=== PATIENT | male | born 1945 | race Caucasian/White ===

== ENCOUNTER → 2016-07-26 | Outpatient (CLI) | payer OTHER ==
[2016-07-26 14:51] LABS: BASO % 0.3 %; BASO ABS # 0.02 K/uL (0-0.2); COMPLETE YES; EOS % 1.5 %; IG% 0.5 %; LYMPH % 23.3 %; LYMPH ABS # 1.36 K/uL (1.2-3.4); MEAN CELL VOLUME 92.8 fL (80-100); MEAN CORPUSCULAR HEMOGLOBIN 31.6 pg (25-34); MEAN CORPUSCULAR HGB CONC 34.1 g/dl (32-36); MEAN PLATELET VOLUME 11.9 fL (7.4-10.4); MONO % 7.5 %; NEUT % 66.9 %; PLATELET COUNT 175 K/uL (130-400); RED BLOOD COUNT 4.74 M/uL (4.7-6.1); WHITE BLOOD COUNT 5.84 K/uL (4.8-10.8)
[2016-07-26 14:59] LABS: ALT/SGPT 56 U/L (12-78); AST/SGOT 35 U/L (15-37); BLOOD UREA NITROGEN 13 mg/dl (7-18); BUN/CREATININE RATIO 11.7 (10-20); CALCIUM 9.1 mg/dl (8.5-10.1); CARBON DIOXIDE 27 mmol/L (21-32); CHLORIDE 98 mmol/L (98-107); GLUCOSE 170 mg/dl (70-99); POTASSIUM 4.2 mmol/L (3.5-5.1); SODIUM 134 mmol/L (136-145)
[2016-07-26 15:04] LABS: ALB/GLOB RATIO 1.2 (0.9-2); ALKALINE PHOSPHATASE 74 U/L (45-117); CHOLESTEROL 155 mg/dl (0-200); CHOLESTEROL/HDL RATIO 3.8; HDL CHOLESTEROL 41 mg/dl; LDL CHOLESTEROL CALCULATED 46 mg/dl; TRIGLYCERIDES 338 mg/dl (0-150); VERY LOW DENSITY LIPOPROT CALC 68 mg/dl
[2016-07-27 06:23] LABS: ESTIMATED AVERAGE GLUCOSE 232 mg/dl; HA1C FLAG Normal (Normal)
== END | disposition home or self-care (01) ==
LOC: C.LABSPEC 14:27
PROVIDERS: ATTEND Family Medicine
DX: E11.9 Type 2 diabetes mellitus without complications (principal); E78.2 Mixed hyperlipidemia; R06.02 Shortness of breath; I10 Essential (primary) hypertension

== ENCOUNTER → 2017-01-24 | Outpatient (CLI) | payer OTHER ==
[2017-01-24 14:26] LABS: ESTIMATED AVERAGE GLUCOSE 232 mg/dl; HA1C FLAG Normal (Normal)
== END | disposition home or self-care (01) ==
LOC: C.LABSPEC 13:07
PROVIDERS: ATTEND Family Medicine
DX: E11.9 Type 2 diabetes mellitus without complications (principal)

== ENCOUNTER → 2017-07-25 | Outpatient (CLI) | payer OTHER ==
[2017-07-25 18:17] LABS: BASO % 0.4 %; BASO ABS # 0.02 K/uL (0-0.2); EOS % 1.7 %; EOS ABS # 0.09 K/uL (0-0.5); HEMATOCRIT 41.4 % (42-52); HEMOGLOBIN 14.2 g/dL (14.0-18.0); IG# 0.01 K/uL (0.00-0.02); LYMPH % 17.7 %; LYMPH ABS # 0.96 K/uL (1.2-3.4); MEAN CELL VOLUME 91.8 fL (80-100); MEAN CORPUSCULAR HEMOGLOBIN 31.5 pg (25-34); MEAN CORPUSCULAR HGB CONC 34.3 g/dl (32-36); MEAN PLATELET VOLUME 10.5 fL (7.4-10.4); MONO % 8.7 %; MONO ABS # 0.47 K/uL (0.11-0.59); NEUT % 71.3 %; NEUT ABS # 3.86 K/uL (1.4-6.5); PLATELET COUNT 167 K/uL (130-400); RED CELL DISTRIBUTION WIDTH CV 13.7 % (11.5-14.5); RED CELL DISTRIBUTION WIDTH SD 45.3 fL (36.4-46.3); WHITE BLOOD COUNT 5.41 K/uL (4.8-10.8)
[2017-07-25 18:48] LABS: ALBUMIN 4.2 gm/dl (3.4-5.0); ALT/SGPT 53 U/L (12-78); BLOOD UREA NITROGEN 16 mg/dl (7-18); CARBON DIOXIDE 27 mmol/L (21-32); CHOLESTEROL 122 mg/dl (0-200); GLUCOSE 157 mg/dl (70-99); POTASSIUM 4.4 mmol/L (3.5-5.1); SODIUM 135 mmol/L (136-145)
[2017-07-25 18:50] LABS: ALKALINE PHOSPHATASE 73 U/L (45-117); AST/SGOT 40 U/L (15-37); LDL CHOLESTEROL CALCULATED 47 mg/dl; TOTAL PROTEIN 7.9 gm/dl (6.4-8.2)
[2017-07-26 07:13] LABS: HEMOGLOBIN A1C 8.8 % (4.5-5.6)
== END | disposition home or self-care (01) ==
LOC: C.LABSPEC 17:50
PROVIDERS: ATTEND Family Medicine
DX: E11.9 Type 2 diabetes mellitus without complications (principal); E78.2 Mixed hyperlipidemia; I10 Essential (primary) hypertension

== ENCOUNTER → 2018-01-23 | Outpatient (CLI) | payer MEDICARE ==
[2018-01-23 13:52] LABS: BASO % 0.3 %; BASO ABS # 0.02 K/uL (0-0.2); EOS ABS # 0.06 K/uL (0-0.5); HEMATOCRIT 43.7 % (42-52); HEMOGLOBIN 14.4 g/dL (14.0-18.0); IG# 0.04 K/uL (0.00-0.02); LYMPH % 18.4 %; LYMPH ABS # 1.11 K/uL (1.2-3.4); MEAN CELL VOLUME 93.2 fL (80-100); MEAN CORPUSCULAR HEMOGLOBIN 30.7 pg (25-34); MEAN PLATELET VOLUME 11.3 fL (7.4-10.4); MONO % 7.1 %; MONO ABS # 0.43 K/uL (0.11-0.59); NEUT % 72.5 %; NEUT ABS # 4.37 K/uL (1.4-6.5); PLATELET COUNT 184 K/uL (130-400); RED CELL DISTRIBUTION WIDTH SD 47.2 fL (36.4-46.3); WHITE BLOOD COUNT 6.03 K/uL (4.8-10.8)
[2018-01-23 14:15] LABS: ALKALINE PHOSPHATASE 62 U/L (45-117); ALT/SGPT 54 U/L (12-78); AST/SGOT 35 U/L (15-37); BLOOD UREA NITROGEN 16 mg/dl (7-18); CALCIUM 9.3 mg/dl (8.5-10.1); CARBON DIOXIDE 25 mmol/L (21-32); CHOLESTEROL 139 mg/dl (0-200); CREATININE 1.08 mg/dl (0.60-1.40); GLUCOSE 157 mg/dl (70-99); LDL CHOLESTEROL CALCULATED 36 mg/dl; POTASSIUM 4.4 mmol/L (3.5-5.1); SODIUM 133 mmol/L (136-145); TOTAL PROTEIN 7.9 gm/dl (6.4-8.2)
== END | disposition home or self-care (01) ==
LOC: C.LABSPEC 12:59
PROVIDERS: ATTEND Family Medicine
DX: E11.9 Type 2 diabetes mellitus without complications (principal); I10 Essential (primary) hypertension; E78.2 Mixed hyperlipidemia

== ENCOUNTER 2024-10-01 11:33 | Inpatient (IN) ==
--- NOTE | 2024-09-26 09:42 | Anesthesiology Consultation ---
Date of Service September 26, 2024 Assessment & Plan (1) Encounter for pre-operative examination: - Check BSG DOS - Infectious disease screening: Per assessment on 09/26/24- No known recent infectious disease contacts or current infectious disease symptoms. - Cardiology visit (09/13/24): "He was incidentally noted to be in atrial flutter during a visit to Pre Admission Testing at [facility] [place] on 08/07/24. He was asymptomatic with the arrhythmia and rate was adequately controlled. He was referred to the ER. He was hypertensive in the ER but other work-up was unremarkable and he was discharged home on Eliquis 5 mg BID. He was then seen in consultation by Champ Bill on 08/15/24. At that time, he was ordered an echocardiogram. Atrial flutter ablation was recommended, but it was decided to pursue this after scheduled back surgery on 09/05/24. When patient arrived for his surgery on 09/05/24, he was tachycardic with a rate of 135 bpm. His rate improved with IV Lopressor and the plan was to continue with surgery, however, it was then discovered that patient had not been holding his anticoagulation therapy. The procedure was therefore cancelled for this reason. He was scheduled follow-up in our office given elevated heart rate on 09/05/24.. Echo 09/04/24: Normal biventricular systolic function. Moderate LVH. Mild biatrial dilation. Mild MR/TR. Normal estimated right heart pressures." "Plan.. Given the fact that he was tachycardic when he arrived for surgery on 09/05/24, will initiate low dose metoprolol to hopefully help with rate control. Atrial flutter ablation is still recommended for more definitive treatment, however, will wait until after his back surgery. He will continue Eliquis 5 mg BID but can hold anticoagulation for 3 days prior to surgery and resume once safe from a bleeding standpoint.. Acceptable risk to proceed with back surgery from a cardiovascular standpoint. Will initiate PO beta joel to hopefully improve rate control but may still require IV rate controlling therapy if he is tachycardic on the day of surgery." Chart Review Chart Review: Acceptable Risk for Surgery (pending EKG DOS) and Patient NOT seen in Pre Admission Testing History Surgery Operation Date: 10/01/24 13:05 Proposed Procedures p L4-L5 Decompression and Fusion, Spinal Cord Monitoring - Adal Aguila DO Height/Weight Height: 5 ft 10 in Weight: 90.718 kg Allergies Allergy/AdvReac Type Severity Reaction Status Date / Time No Known Allergies Allergy Verified 09/26/24 08:51 Medications Home Medications Medication Instructions Recorded Confirmed Last Taken aspirin 81 mg tablet,delayed 81 mg PO QAM 07/27/24 09/26/24 09/04/24 10:00 release enalapril maleate 20 mg tablet 20 mg PO QAM 07/27/24 09/26/24 09/04/24 10:00 ezetimibe 10 mg tablet 10 mg PO QAM 07/27/24 09/26/24 09/05/24 05:00 glimepiride 4 mg tablet 8 mg PO QAM 07/27/24 09/26/24 09/04/24 10:00 metformin 500 mg tablet 2,500 mg PO QAM 07/27/24 09/26/24 09/04/24 10:00 pioglitazone 45 mg tablet 45 mg PO QAM 07/27/24 09/26/24 09/04/24 10:00 simvastatin 20 mg tablet 20 mg PO QAM 07/27/24 09/26/24 09/05/24 05:00 sitagliptin phosphate 100 mg 100 mg PO QAM 07/27/24 09/26/24 09/04/24 10:00 tablet (Januvia) cholecalciferol (vitamin D3) 125 125 mcg PO BID 09/05/24 09/26/24 09/05/24 05:00 mcg (5,000 unit) tablet (Vitamin D3) apixaban 5 mg tablet (Eliquis) 5 mg PO BID #60 tabs 09/13/24 09/26/24 Unknown metoprolol succinate 25 mg 25 mg PO DAILY #30 tabs 09/13/24 09/26/24 Unknown tablet,extended release 24 hr Past Medical History Medical History Atrial flutter Taking Eliquis/metoprolol Follows with [facility] Chronic back pain Degenerative disc disease Diabetes mellitus, type 2 NIDDM Hx of rheumatic fever As child Hyperlipidemia Hypertension Osteoarthritis Past Family History Family History Father No problems noted. Mother Diabetes Brother Diabetes Brother Diabetes Past Surgical History Surgical History History of tooth extraction Hx of vasectomy Social History Smoking Status: Never smoker Do You Dip or Chew Tobacco: No Hx Alcohol Use: Yes Alcohol type: beer alcohol intake frequency: holidays/special occasions only Hx Substance Use: No substance use type: does not use Lab Results Anesthesia Preop Results Results Anesthesia Widget: WBC 4.88 K/ul (4.8-10.8) 08/07/24 Hgb 14.9 g/dl (14.0-18.0) 08/07/24 Hct 45.3 % (42.0-52.0) 08/07/24 Plt 147 K/uL (130-400) 08/07/24 Na 136 mmol/L (136-145) 08/07/24 K 4.2 mmol/L (3.5-5.1) 08/07/24 Cl 100 mmol/L (98-107) 08/07/24 CO2 29 mmol/L (21-32) 08/07/24 BUN 16 mg/dl (6-23) 08/07/24 Creat 1.12 mg/dl (0.6-1.4) 08/07/24 Glucose Level 209 mg/dl (70-99(Fasting)) H 08/07/24 PT 11.4 Seconds (9.0-12.0) 08/07/24 PTT 28 Seconds (21-31) 08/07/24 INR 1.1 (0.9-1.1) 08/07/24 HA1c 9.1 % (4.5-5.6) H 08/07/24 Urine Color Yellow 08/08/24 Urine Appearance Clear (Clear) 08/08/24 Urine pH 5.0 (4.5-7.5) 08/08/24 Urine Specific [place] 1.029 (1.000-1.030) 08/08/24 Urine Protein 1+ (Negative) H 08/08/24 Urine Glucose (UA) 3+ (Negative) H 08/08/24 Urine Ketones Trace (Negative) H 08/08/24 Urine Blood Negative (Negative) 08/08/24 Urine Nitrite Negative (Negative) 08/08/24 Urine Bilirubin Negative (Negative) 08/08/24 Urine Urobilinogen Negative (Negative) 08/08/24 Urine Leukocyte Esterase Negative (Negative) 08/08/24 Urine WBC (Auto) 0-5 /hpf (0-5) 08/08/24 Urine RBC (Auto) 0-2 /hpf (0-2) 08/08/24 Urine Hyaline Casts (Auto) 0-2 /lpf (0-2) 08/08/24 Urine Epithelial Cells (Auto) 0-2 /hpf (0-2) 08/08/24 Urine Bacteria (Auto) None Seen (None Seen) 08/08/24 Coronavirus OC43 (PCR) Not Detected (NotDetected) 08/07/24 Coronavirus HKU1 (PCR) Not Detected (NotDetected) 08/07/24 Coronavirus 229E (PCR) Not Detected (NotDetected) 08/07/24 COVID-19 PCR Not Detected (NotDetected) 08/07/24 Coronavirus NL63 (PCR) Not Detected (NotDetected) 08/07/24 Blood Type O Positive 08/07/24 Antibody Screen NEGATIVE 08/07/24 Testing Laboratory Results Surgeon's office notified of elevated A1C per addendum on anesthesia consult from 08/07/24. Electrocardiogram Date: 09/05/24 Atrial flutter with variable AVB at 135bpm. Cannot r/o inferior infarct (cited on or before 08/07/2024). Chest X-Ray Date: 08/07/24 FINDINGS: Single view chest demonstrates no acute cardiopulmonary process. Is no airspace opacity or pleural effusion. There is no atelectasis or pneumothorax. The heart and pulmonary vascularity are unremarkable. IMPRESSION: No acute process. Echocardiogram Date: 09/04/24 EF 55-60%. Moderate asymmetric LVH. No RWMA. Mild RVD. Mild MR/TR. Normal estimated right heart pressures.
[~2024-10-01 11:33] MED LIST: DEXAMETHASONE SOD INJ 4 MG/ML VIAL ONE; GLYCOPYRROLATE 0.2 MG/ML VIAL ONE; LIDOCAINE 2% 2 ML VIAL/AMP(20MG/ML) INFIL ONE; ONDANSETRON INJ 2 MG/ML 2 ML VIAL ONE; PROPOFOL IV EMULSION 10 MG/ML 20 ML VIAL IV ONE; ROCURONIUM BROMIDE 10 MG/ML 5 ML VIAL IV ONE; fentaNYL citrate PF 100 MCG/2 ML VIAL ONE
[2024-10-01] MEDS: CeleBREX 200 MG CAP PO SCH (12:17)
[2024-10-01] MEDS: LACTATED RINGER'S 1,000 ML IV SCH (12:17)
[2024-10-01] MEDS: ACETAMINOPHEN 500 MG TAB PO SCH (12:17)
[2024-10-01] MEDS: LR 60ML/HR IV SCH (12:18)
[2024-10-01] MEDS: GABAPENTIN 300 MG CAP PO SCH (12:18)
[2024-10-01] MEDS ORDERED: METOPROLOL TARTRATE 1 MG/ML VIAL IV ONE (12:34)
--- NOTE | 2024-10-01 12:58 | History & Physical Bridge Note ---
Date of Service October 01, 2024 History & Physical Bridge Note I have examined the patient, reviewed the History & Physical and in the interval since the performance of the History & Physical I have noted the following changes of clinical significance: no changes noted
--- NOTE | 2024-10-01 12:59 | History & Physical Report ---
Date of Service October 01, 2024 Assessment & Plan (1) Spondylolisthesis, lumbar region: Plan: L4-5 decompression fusion History of Present Illness Chief Complaint: Back and bilateral leg pain Primary Care Provider: Dru Johnson DO This is a 78-year-old male who presents with chronic persistent back and leg pain after failed course of nonoperative care is here for surgical invention. Allergies Allergy/AdvReac Type Severity Reaction Status Date / Time No Known Allergies Allergy Verified 10/01/24 11:40 Home Medications Medication Instructions Recorded Confirmed Type aspirin 81 mg tablet,delayed 81 mg PO QAM 07/27/24 10/01/24 History release enalapril maleate 20 mg tablet 20 mg PO QAM 07/27/24 10/01/24 History (Vasotec) ezetimibe 10 mg tablet (Zetia) 10 mg PO QAM 07/27/24 10/01/24 History glimepiride 4 mg tablet 8 mg PO QAM 07/27/24 10/01/24 History metformin 500 mg tablet 2,500 mg PO QAM 07/27/24 10/01/24 History pioglitazone 45 mg tablet 45 mg PO QAM 07/27/24 10/01/24 History simvastatin 20 mg tablet 20 mg PO QAM 07/27/24 10/01/24 History sitagliptin phosphate 100 mg 100 mg PO QAM 07/27/24 10/01/24 History tablet (Januvia) cholecalciferol (vitamin D3) 125 125 mcg PO BID 09/05/24 10/01/24 History mcg (5,000 unit) tablet (Vitamin D3) apixaban 5 mg tablet (Eliquis) 5 mg PO BID #60 tabs 09/13/24 10/01/24 Rx metoprolol succinate 25 mg 25 mg PO DAILY #30 tabs 09/13/24 10/01/24 Rx tablet,extended release 24 hr Past Med/Surg History Problem List (Updated 10/01/24 @ 12:58 by Adal Aguila DO) Spondylolisthesis, lumbar region Encounter for pre-operative examination Hyperlipidemia Medical History Atrial flutter Taking Eliquis/metoprolol Follows with [facility] Chronic back pain Degenerative disc disease Diabetes mellitus, type 2 NIDDM Hx of rheumatic fever As child Hyperlipidemia Hypertension Osteoarthritis Surgical History History of tooth extraction Hx of vasectomy Family History Father No problems noted. Mother Diabetes Brother Diabetes Brother Diabetes Social History Smoking Status: Never smoker Second Hand Exposure: No; Do You Dip or Chew Tobacco: No; Tobacco Cessation Education Requested by Patient: No Hx Alcohol Use: Yes Alcohol type: beer Hx Substance Use: No Preferred Language: [place]i Communication Ability: Effective Fur Grader Required: No Beliefs That Will Affect Care: None Current Living Situation: Spouse and Family Other Information That Helps Us Care for You: No Feels Safe at Home: Yes Safety Concerns: Feels Safe At This Time Assistive Devices: Denture - Upper and Denture - Lower Physical Exam Physical Exam: Patient is alert and oriented Heart regular rhythm Lungs clear Results & Data Results & Data Vital Signs (Past 12 Hours) Vital Signs Temp Pulse Resp BP BP Pulse Ox O2 Del Method 10/01/24 12:49 67 18 146/78 H 96 Room Air 10/01/24 12:44 68 18 143/76 H 94 Room Air 10/01/24 12:38 69 18 146/76 H 98 Room Air 10/01/24 11:58 36.7 C 115 H 20 191/125 H 186/120 H 99 Room Air
[2024-10-01] MEDS: ceFAZolin 2000MG 2,000 MG/15 ML SYR IV SCH ×2 (13:32→21:16)
[2024-10-01] MEDS ORDERED: ROCURONIUM BROMIDE 10 MG/ML 5 ML VIAL IV ONE (13:58)
[2024-10-01] MEDS ORDERED: ePHEDrine sulfate 50 MG/5 ML SYR ONE (14:02)
[2024-10-01] MEDS: ceFAZolin 330 MG/ML 1 GM VIAL ONE (14:20)
[2024-10-01] MEDS: BUPIVACAINE/EPINEPHRINE 0.25% 1:200,000 30 ML VIAL ONE (14:20)
[2024-10-01] MEDS ORDERED: SUGAMMADEX SODIUM 200 MG/2 ML VIAL IV ONE (14:46)
[2024-10-01] MEDS ORDERED: fentaNYL citrate PF 100 MCG/2 ML VIAL ONE (14:47)
[2024-10-01] MEDS: FLOSEAL HEMOSTATIC MATRIX 10ML TOP ONE (15:00)
--- NOTE | 2024-10-01 15:15 | Operative Report ---
Post Operative Report Pre & Post Diagnosis Operation Date: 10/01/24 13:05 Pre-Op Diagnosis: #1 lumbar spondylolisthesis with radiculopathy #2 lumbar spondylosis with radiculopathy #3 lumbar spinal stenosis Post-Op Diagnosis: Same I identified the patient and participated in the time-out.: Yes Procedure Operation Date: 10/01/24 13:05 Actual Procedures #1 lumbar decompression with bilateral milliseconds and foraminotomies L3-L4 L4- 5. #2 posterior spinal fusion L4-5 for #3 please close transportation L4-5 using open. #4 interbody fusion L4-5 #5 this was prior 14 x 26 mm x 2 at L4-5 #6 placement locally harvested 1 Cystografin posterior gutter. #7 placement of infuse collagen sponge can both close in the posterior lateral gutters and os design interbody space. Surgeon Adal Aguila DO Director Strategy Suzan Carroll Estimated Blood Loss 250 Findings Consistent with Post-Op Diagnosis Specimens None Indications This is a 78-year-old male presents by manage diagnosis septic in the course of nonoperative care is here for surgical invention. Description of Procedure Patient was met with identified informed consent obtained. Patient was then taken to the operative suite underwent to the patient placed in a prone position on the Tanner table With a Rowdy frame. All bony prominences well-padded eyes inspected to ensure no external close based on the. This point lumbar spine is prepped and draped in normal sterile fashion. Sharp dissection with the assistance of Bovie cautery for down to exposing the lamina transverse processes of L4-5. From a caudal cephalad fashion a complete laminectomy of L4 was performed including bilateral L5 segments from addressing severe subarticular and foraminal stenosis. This followed by partial laminectomy L3 with bilateral medial facetectomy stressed all subarticular stenosis. Pedicle screws were then placed in L4-5 bilaterally with assistance of fluoroscopy and the properly sized darlene placed. Typically the transforaminal portion right discectomy of L4-5 is performed and please go to just a cortical bone and a 14 x 26 mm spiral cage phototoxic design bone graft down to position. Then proceeded to the left transforaminal region. Again discectomy performed. Endplate coated to subcortically bone and a second 14 x 26 mm spiral cage with ostia sign catheterization. The rods are then compressed locked in final position bilaterally. Transverse processes of L4 fibroid to subcortical bony bone. Infuse collagen sponge, combined with close was then placed in the posterolateral gutters along with morselized local autograft. I then placed DuraGen and DuraSeal over the dura as there was a small area of thinning but no CSF leak. 15 round BELEN drain inserted. The incision was then closed with 1 Vicryl fascia 2-0 Vicryl subcutaneously and 4 Monocryl for final skin closure. Steri-Strips sterile dressing placed. Patient waken taken to PACU in stable condition. Please note spinal cord monitoring was utilized at the procedure no changes noted. Suzan Carroll was present at the entire surgery by the patient positioning complex portion of the surgery and final skin closure. Im ordering 10 grams of Collagen Powder ([facility] A6010 Primary Dressing) and 10 bordered super absorbent ([facility] A6196 Secondary Dressing) to treat an incision wound that was caused by a spine procedure. The incision is approximately 2 cm(W) x 2 cm(L) down to the spinal column and epidural space 2 cm (D) in size and is a full thickness wound showing no signs of infection. Collagen comes in 1 gram packets so 10 packets were ordered. Given the size of the wound, with moderate exudate I chose to order a 10 day supply. The patient will be provided instructions for proper application of the collagen wound kit. The patient will be asked to apply the collagen powder daily and then cover it with sterile dressings dispensed. Collagen was selected as I expect the collagen to attract monocytes and fibroblasts, act as a sacrificial substrate for MMPs, and ultimately proved a matrix for tissue and vessel growth. The collagen will act as a primary dressing in this scenario. It is medically necessary for proper healing of these wounds to improve bioavailability and contact with each wound surface, this is also to help prevent infection of wounds and promote healing ultimately leading to a better healing outcome and limit the risk of infection. I attest to the content of the Intraoperative Record and any orders documented therein. Any exceptions are noted below.
[2024-10-01] MEDS ORDERED: ePHEDrine sulfate 50 MG/ML AMP IV PRN (15:34)
[2024-10-01] MEDS ORDERED: ONDANSETRON INJ 2 MG/ML 2 ML VIAL IV PRN ×2 (15:34→17:56)
[2024-10-01] MEDS ORDERED: fentaNYL citrate PF 100 MCG/2 ML VIAL IV PRN (15:34)
[2024-10-01] MEDS ORDERED: ATROPINE SULFATE 0.1 MG/ML 10ML SYR IV PRN (15:34)
--- NOTE | 2024-10-01 15:35 | Fluoroscopy Report ---
FL lumbar spine 2-3V CLINICAL HISTORY: L4-L5 DECOMPRESSION AND FUSION COMPARISON STUDY: No previous studies for comparison. Fluoroscopy time: 15 seconds. Number of fluoroscopic images: 2 Ka,r: 11.19 mGy. FINDINGS: Fluoroscopy was provided during L4-5 decompression and fusion with interbody spacer placeme nt. IMPRESSION: Fluoroscopy provided during L4-L5 decompression and fusion. ACT 112: Negative or not required by law. Electronically signed by: Jesus Tobar M.D. 10/01/2024 3:33 PM
--- NOTE | 2024-10-01 15:59 | Anesthesiology Progress Note ---
Date of Service October 01, 2024 Anesthesia Post Procedure Vital Signs Vital Signs: Temp Pulse Resp BP BP Pulse Ox O2 Del Method 10/01/24 15:55 106 H 17 116/91 94 Room Air 10/01/24 15:45 105 H 18 114/84 98 Oxymask 10/01/24 15:35 99 H 18 110/77 99 Oxymask 10/01/24 15:27 97.9 F 86 16 117/81 98 Oxymask 10/01/24 13:05 67 18 137/94 95 Room Air 10/01/24 12:49 67 18 146/78 H 96 Room Air 10/01/24 12:44 68 18 143/76 H 94 Room Air 10/01/24 12:38 69 18 146/76 H 98 Room Air 10/01/24 11:58 98.1 F 115 H 20 191/125 H 186/120 H 99 Room Air O2 Flow Rate 10/01/24 15:55 10/01/24 15:45 2 10/01/24 15:35 6 10/01/24 15:27 6 10/01/24 13:05 10/01/24 12:49 10/01/24 12:44 10/01/24 12:38 10/01/24 11:58 Pain Intensity Bilateral Buttock: Pain Intensity: 3 Transfer of Care Handoff Completed per policy Notes Mental Status: alert / awake / arousable and participated in evaluation Patient Amnestic to Procedure: Yes Nausea / Vomiting: adequately controlled Pain: adequately controlled Airway Patency, RR, SpO2: stable & adequate BP & HR: stable & adequate Hydration State: stable & adequate Anesthetic Complications: no major complications apparent and Pt Satisfied with anesthetic care
[2024-10-01] MEDS ORDERED: ALUMINUM/MAGNESIUM SUSP 30 ML UDC PO PRN (17:56)
[2024-10-01] MEDS ORDERED: ACETAMINOPHEN 500 MG TAB PO PRN (17:56)
[2024-10-01] MEDS ORDERED: diphenhydrAMINE Capsule 25 MG CAP PO PRN (17:56)
[2024-10-01] MEDS ORDERED: LORazepam 2 MG/1 ML VIAL IV PRN (17:56)
[2024-10-01] MEDS ORDERED: PHARMACY GLYCEMIC MGMT CONSULT PRN (17:56)
[2024-10-01] MEDS ORDERED: HYDROmorphone INJ 1 MG/ML SYRINGE IV PRN (17:56)
[2024-10-01] MEDS ORDERED: DO NOT ADMINISTER PNEUMOCOCCAL VACCINE PRN (17:56)
[2024-10-01] MEDS ORDERED: DO NOT ADMINISTER FLU VACCINE PRN (17:56)
[2024-10-01] MEDS ORDERED: FAMOTIDINE 20 MG TAB PO PRN (17:56)
[2024-10-01] MEDS ORDERED: METOCLOPRAMIDE HCL INJ 5 MG/ML 2 ML VIAL IV PRN (17:56)
[2024-10-01] MEDS ORDERED: ONDANSETRON 4 MG OD TAB PO PRN (17:56)
[2024-10-01] MEDS ORDERED: oxyCODONE HCL IR 5 MG TAB (IMMEDIATE RELEASE) PO PRN (17:56)
[2024-10-01] MEDS ORDERED: ACETAMINOPHEN 1,000 MG/100 ML VIAL IV PRN (17:56)
[2024-10-01] MEDS ORDERED: PROMETHAZINE 12.5 MG/50.5 ML BAG IV PRN (17:56)
[2024-10-01] MEDS ORDERED: SOD PHOSPHATE/SOD BIPHOSPHATE ENEMA 132 ML BTL PR PRN (17:56)
[2024-10-01] MEDS ORDERED: bisacodyL 10 MG SUPP PR PRN (17:56)
[2024-10-01] MEDS ORDERED: hydrOXYzine HCl 25 MG TAB PO PRN (17:56)
[2024-10-01] MEDS ORDERED: HYDROmorphone INJ 0.5 MG/0.5 ML SYR IV PRN (17:56)
[2024-10-01] MEDS ORDERED: LORazepam 0.5 MG TAB PO PRN (17:56)
[2024-10-01] MEDS ORDERED: NALOXONE HCL 0.4 MG/1 ML VIAL/CARP IV PRN (17:56)
[2024-10-01] MEDS ORDERED: MAGNESIUM HYDROXIDE SUSP 30 ML UDC PO PRN (17:56)
[2024-10-01] MEDS: INSULIN ASPART PER UNIT CHARGE SC SCH (20:20)
[2024-10-01] MEDS: LANTUS PER UNIT CHARGE SC ONE (20:40)
--- NOTE | 2024-10-01 21:04 | Hospitalist Progress Note ---
Date of Service October 01, 2024 Assessment & Plan (1) Atrial flutter: (2) Diabetes mellitus, type 2: (3) Hypertension: Plan #Atrial fibs/fluttertachycardic now. He notes normally his rates are under very good control. Add 25 mg of metoprolol tartrate now, redose if needed. For now reasonable goal target for his heart rate would be persistently below 110. If the metoprolol does not affect better control, can read dose. Obviously if he is showing any symptoms (right now he is not) or if his heart rates are very stubborn to control we could move to telemetry to utilize IV medicationsunlikely to be necessary. Anticoagulation on hold given his surgery #hypertensionblood pressure gives plenty of margin of error for additional rate controlling meds. Continue home meds otherwise. Follow. #Type 2 diabetespharmacy glycemic consult has been placed by primary service #DVT prophylaxisSCDs ordered by primary service. Admission and Anticipated Discharge Date Admission Date: October 01, 2024 Subjective Seen postop. Feeling good. Pain under reasonable control. Heart rate up. He notes normally at home his heart rate is around 50. He does not feel any chest pain/palpitations/dyspnea at this time. Notes that he is not at all used to being in the hospital. Review of Systems Review of Systems: All systems reviewed & are unremarkable except as noted in HPI & below Physical Exam Physical Exam: In general he is awake alert oriented pleasant no distress. HEENT normocephalic atraumatic mucous membranes moist. Breathing unlabored no accessory muscle use good effort. Skin without rashes pallor or icterus. Cardio is tachycardic to about 130. Results & Data Results & Data Vital Signs (Past 12 Hours) Vital Signs Temp Pulse Resp BP BP Pulse Ox O2 Del Method 10/01/24 19:17 98.2 F 134 H 16 135/97 97 Room Air 10/01/24 18:14 133 H 15 127/80 93 Nasal Cannula 10/01/24 17:49 98.1 F 132 H 15 134/78 97 Nasal Cannula 10/01/24 17:30 117 H 16 108/67 95 Nasal Cannula 10/01/24 17:00 97.3 F L 103 H 17 116/69 96 Nasal Cannula 10/01/24 16:45 106 H 19 111/73 94 Nasal Cannula 10/01/24 16:30 105 H 18 104/77 97 Nasal Cannula 10/01/24 16:15 93 H 18 113/72 99 Nasal Cannula 10/01/24 16:05 98.1 F 104 H 16 117/77 96 Nasal Cannula 10/01/24 15:55 106 H 17 116/91 94 Room Air 10/01/24 15:45 105 H 18 114/84 98 Oxymask 10/01/24 15:35 99 H 18 110/77 99 Oxymask 10/01/24 15:27 97.9 F 86 16 117/81 98 Oxymask 10/01/24 13:05 67 18 137/94 95 Room Air 10/01/24 12:49 67 18 146/78 H 96 Room Air 10/01/24 12:44 68 18 143/76 H 94 Room Air 10/01/24 12:38 69 18 146/76 H 98 Room Air 10/01/24 11:58 98.1 F 115 H 20 191/125 H 186/120 H 99 Room Air O2 Flow Rate 10/01/24 19:17 10/01/24 18:14 2 10/01/24 17:49 2 10/01/24 17:30 2 10/01/24 17:00 2 10/01/24 16:45 2 10/01/24 16:30 2 10/01/24 16:15 2 10/01/24 16:05 2 10/01/24 15:55 10/01/24 15:45 2 10/01/24 15:35 6 10/01/24 15:27 6 10/01/24 13:05 10/01/24 12:49 10/01/24 12:44 10/01/24 12:38 10/01/24 11:58 PG Care Time/CCT Total # of Minutes Spent Total Time Spent with Patient: Total time spent is greater than 50% in coordination of care (as documented) at patient's floor/unit and/or counseling patient: Coding Level of Care Code 66577 SUB INP/OBS CARE 3/50MIN Diagnoses Atrial flutter I48.92 Diabetes mellitus, type 2 E11.9 Hypertension I10
[2024-10-01] MEDS: METOPROLOL TARTRATE 25 MG TAB PO ONE (21:11)
[2024-10-01] MEDS: CHOLECALCIFEROL 125 MCG (5,000 UNITS) TAB PO SCH (21:13)
[2024-10-01] MEDS: DOCUSATE SODIUM/SENNA 50/8.6MG TAB PO SCH (21:15)
[2024-10-02] MEDS: INSULIN ASPART PER UNIT CHARGE SC SCH (03:00)
--- NOTE | 2024-10-02 04:45 | Electrocardiogram Report ---
Test Reason : Blood Pressure : */* mmHG Vent. Rate : 107 BPM Atrial Rate : 283 BPM P-R Int : * ms QRS Dur : 66 ms QT Int : 320 ms P-R-T Axes : 255 13 76 degrees QTcB Int : 427 ms Atrial flutter with variable A-V block Cannot rule out Inferior infarct (cited on or before 07-Aug-2024) Nonspecific ST abnormality Abnormal ECG When compared with ECG of 05-Sep-2024 07:02, No significant change Confirmed by Amadou Vital ([id number]) on 10/02/2024 4:44:32 AM Referred By: Adal Aguila Confirmed By: Amadou Vital
[2024-10-02] MEDS: POLYETHYLENE (MIRALAX) 17 GM PACK PO SCH (05:35)
[2024-10-02] MEDS: traMADol HCL 50 MG TABLET PO PRN (05:45)
[2024-10-02 06:39] LABS: Basophils # (auto) 0.02 K/uL (0.00-0.20); Basophils % (auto) 0.2 %; Hematocrit (blood only) 36.4 % (42.0-52.0); Hemoglobin 12.5 g/dl (14.0-18.0); Immature Granulocytes # (auto) 0.07 K/uL (0.01-0.20); Immature Granulocytes % (auto) 0.6 %; Lymphocytes # (auto) 1.27 K/uL (1.20-3.40); Lymphocytes % (auto) 10.3 %; Mean Corpuscular Hemoglobin 31.6 pg (25.0-34.0); Mean Corpuscular Hgb Conc 34.3 g/dL (32.0-36.0); Mean Corpuscular Volume 91.9 fL (80.0-100.0); Mean Platelet Volume 11.1 fL (9.4-12.4); Monocytes # (auto) 1.01 K/uL (0.11-0.59); Monocytes % (auto) 8.2 %; Neutrophils # (auto) 10.01 K/uL (1.40-6.50); Neutrophils % (auto) 80.7 %; Platelet Count 164 K/uL (130-400); RDW Coefficient of Variation 13.7 % (11.5-14.5); RDW Standard Deviation 46.3 fL (36.4-46.3); Red Blood Count 3.96 M/uL (4.70-6.10); White Blood Count 12.38 K/ul (4.8-10.8)
[2024-10-02 06:57] LABS: BUN Creatinine Ratio 17.9 (10-20); Calcium 9.5 mg/dl (8.6-10.3); Creatinine Clr Calc Pharmacy 60.3 ml/min; Potassium 4.3 mmol/L (3.5-5.1)
[2024-10-02] MEDS ORDERED: GLIMEPIRIDE 2 MG TAB PO SCH (07:30)
[2024-10-02] MEDS ORDERED: NON-FORMULARY MEDICATION (Pioglitazone 45 mg Tablet) PO SCH (09:00)
[2024-10-02] MEDS ORDERED: SITagliptin PHOSPHATE 100 MG TAB PO SCH (09:00)
[2024-10-02] MEDS: dexAMETHasone 6 MG in SYRINGE 0 ML IV SCH (09:18)
[2024-10-02] MEDS: SIMVASTATIN 20 MG TAB PO SCH (09:18)
[2024-10-02] MEDS: METOPROLOL SUCC 25MG EXT REL TAB PO SCH (09:18)
[2024-10-02] MEDS: ENALAPRIL MALEATE 10 MG TAB PO SCH (09:19)
[2024-10-02] MEDS: ASPIRIN 81 MG ECTAB PO SCH (09:19)
[2024-10-02] MEDS: EZETIMIBE 10 MG TAB PO SCH (09:20)
--- NOTE | 2024-10-02 12:02 | Orthopedic Progress Note ---
Date of Service October 02, 2024 Assessment & Plan (1) Spondylolisthesis, lumbar region: Plan: At this time we will initiate physical therapy monitor his BELEN operatively discharge in the next few days. Admission and Anticipated Discharge Date Admission Date: October 01, 2024 Subjective Patient's back pain is controlled leg symptoms improved. Has been up and ambulating. Physical Exam Physical Exam: Patient is in the chair at the bedside. Is comfortable. Distracted testing. Results & Data Vital Signs (Past 12 Hours) Vital Signs Temp Pulse Resp BP Pulse Ox O2 Del Method 10/02/24 09:15 124/79 10/02/24 07:34 36.7 C 96 H 16 122/80 97 Room Air 10/02/24 03:07 36.6 C 92 H 18 118/78 95 Room Air
[2024-10-02] MEDS: LANTUS PER UNIT CHARGE SC ONE (12:29)
--- NOTE | 2024-10-02 12:55 | Hospitalist Progress Note ---
Date of Service October 02, 2024 Assessment & Plan (1) Atrial flutter: (2) Diabetes mellitus, type 2: (3) Hypertension: Plan #Atrial fibrillation/flutter with RVR Tachycardia has now resolved; rate controlled on 10/02 Patient reports he did not take his regular dose of metoprolol prior to his operation on 10/01 Suspect etiology of RVR could have been beta-joel withdrawal/rebound He notes normally his rates are under very good control Patient received metoprolol tartrate 25 mg p.o. x 1 Magnesium Restart metoprolol succinate 25 mg daily For now reasonable goal target for his heart rate would be persistently below 110bpm If the metoprolol does not affect better control, can re-dose. Obviously if he is showing any symptoms (currently asymptomatic) or if his heart rates are very stubborn to control we could move to telemetry to utilize IV medicationsunlikely to be necessary Anticoagulation on hold given his surgery; Hgb 12.5 on 10/02 #Leukocytosis Mild; WBC count 12.38 on 10/02 Clinically, patient denies infectious symptoms such as fever, but did report he was "sweaty" last night; ? Infection as the etiology of tachycardia CXR ordered, pending UA ordered, pending Continue to trend with a.m. labs #Hypertensionblood pressure gives plenty of margin of error for additional rate controlling meds. Continue home meds otherwise. Follow. #Type 2 diabetespharmacy glycemic consult has been placed by primary service #DVT prophylaxisSCDs ordered by primary service. Thank you for allowing us to precipitate in the care of this patient, we will continue to follow. Admission and Anticipated Discharge Date Admission Date: October 01, 2024 Subjective Mr. Benton is resting peacefully in his chair this morning watching TV. He reports he is feeling much better than he did yesterday. He did not sleep so well last night, but reports this is usual for him as he used to be a trash collector truck driver, and has been taking catnaps this morning. Additionally, he has been eating and drinking well. He was able to get up and urinate last night with s ome help from the nurses. He is still having pain at his incision site on his lower back, which she rates 7/10 at present. No radiation down the legs. [place] with [place], and reports that his "buttocks" pain is no longer present, which she is very excited about. Overall, the patient reports he is doing very well. No chest pain, pleuritic CP, SOB, or chest palpitations. He reports that he did not take his regular dose of metoprolol on the morning of his procedure. ROS: Patient endorses sweating overnight (which she attributes to temperature in the room), and lower back pain around his incision site. Patient denies fever, chills, chest pain, chest palpitations, SOB at rest, ROBLES, cough, abdominal pain, N/V/D, saddle anesthesia, burning with urination, or numbness/tingling/pain in the legs. Review of Systems Review of Systems: See HPI above Physical Exam Physical Exam: General: no acute distress; pleasant affect; non-toxic appearing; well- nourished; cooperative; SpO2 97% on RA HEENT: normocephalic, atraumatic; no scleral icterus; PERRLA; vision and hearing intact Neck: supple; no lymphadenopathy; trachea midline Skin: warm, dry without signs of tenting; no cyanosis; no rashes, bruising, lesions, or erythema noted CV: chest wall NTP; irregularly irregular rhythm around 95 bpm; S1/S2 normal; no murmurs/rubs/gallops; pulses intact and symmetric at radial, DP, and PT Lungs: no acute respiratory distress; symmetrical chest wall expansion; clear breath sounds across all lung solorio w/o adventitious sounds; no wheezing ABD: Soft, NTP; BS present; no rebound/guarding; no distention Back: Upper spine NTP; lower spine with surgical dressing without signs of drainage, erythema, or infection; lower spine NTP MSK: no tics or fasciculations; no edema noted in the LEs b/l, nonerythematous; patient demonstrates ability to wiggle toes bilaterally Neuro: A&Ox3; normal mood and affect; fluent speech; no focal deficits; sensation grossly intact and symmetric in the lower extremities bilaterally assessed via light touch Results & Data Results & Data Vital Signs (Past 12 Hours) Vital Signs Temp Pulse Resp BP Pulse Ox O2 Del Method 10/02/24 09:15 124/79 10/02/24 07:34 36.7 C 96 H 16 122/80 97 Room Air 10/02/24 03:07 36.6 C 92 H 18 118/78 95 Room Air Laboratory Results Abnormal lab results 10/01/24 10/01/24 10/01/24 Range/Units 15:33 18:13 20:34 WBC (4.8-10.8) K/ul RBC (4.70-6.10) M/uL Hgb (14.0-18.0) g/dl Hct (42.0-52.0) % Neut # (Auto) (1.40-6.50) K/uL [place] # (Auto) (0.11-0.59) K/uL Glucose (70-99(Fasting)) mg/dl POC Glucose 160 H 201 H 303 H* (70-99) mg/dl 10/01/24 10/01/24 10/01/24 Range/Units 20:36 21:28 21:30 WBC (4.8-10.8) K/ul RBC (4.70-6.10) M/uL Hgb (14.0-18.0) g/dl Hct (42.0-52.0) % Neut # (Auto) (1.40-6.50) K/uL [place] # (Auto) (0.11-0.59) K/uL Glucose (70-99(Fasting)) mg/dl POC Glucose 288 H 326 H* 280 H (70-99) mg/dl 10/02/24 10/02/24 10/02/24 Range/Units 02:40 06:08 07:29 WBC 12.38 H (4.8-10.8) K/ul RBC 3.96 L (4.70-6.10) M/uL Hgb 12.5 L (14.0-18.0) g/dl Hct 36.4 L (42.0-52.0) % Neut # (Auto) 10.01 H (1.40-6.50) K/uL [place] # (Auto) 1.01 H (0.11-0.59) K/uL Glucose 152 H (70-99(Fasting)) mg/dl POC Glucose 165 H 166 H (70-99) mg/dl 10/02/24 Range/Units 11:19 WBC (4.8-10.8) K/ul RBC (4.70-6.10) M/uL Hgb (14.0-18.0) g/dl Hct (42.0-52.0) % Neut # (Auto) (1.40-6.50) K/uL [place] # (Auto) (0.11-0.59) K/uL Glucose (70-99(Fasting)) mg/dl POC Glucose 205 H (70-99) mg/dl Diagnostic Findings Lumbar Spine X-Ray 10/01/24 13:05 FL lumbar spine 2-3V CLINICAL HISTORY: L4-L5 DECOMPRESSION AND FUSION COMPARISON STUDY: No previous studies for comparison. Fluoroscopy time: 15 seconds. Number of fluoroscopic images: 2 Ka,r: 11.19 mGy. FINDINGS: Fluoroscopy was provided during L4-5 decompression and fusion with interbody spacer placement. IMPRESSION: Fluoroscopy provided during L4-L5 decompression and fusion. ACT 112: Negative or not required by law. Electronically signed by: Jesus Tobar M.D. 10/01/2024 3:33 PM PG Care Time/CCT Total # of Minutes Spent Total Time Spent with Patient: Total time spent is greater than 50% in coordination of care (as documented) at patient's floor/unit and/or counseling patient: Coding [place] [address] SUB INP/OBS CARE 2/35MIN Patient Type Established History Comprehensive Exam Comprehensive Medical Decision Making Moderate Complexity Diagnoses Atrial flutter I48.92 Diabetes mellitus, type 2 E11.9 Hypertension I10
--- NOTE | 2024-10-02 14:04 | XRay Report ---
XR chest 1V portable CLINICAL HISTORY: Leukocytosis COMPARISON STUDY: 08/07/2024 FINDINGS: Stable mild cardiomegaly without pulmonary vascular congestion. No effusion or consolidatio n. IMPRESSION: No pneumonia seen. ACT 112: Negative or not required by law. Electronically signed by: Ponce Noble M.D. 10/02/2024 2:02 PM
--- NOTE | 2024-10-02 14:05 | Pharmacy Report ---
Pharmacy Glycemic Short Note 2 - Date of Service October 02, 2024 - Glycemic Short BSG Results (Last 24 hours): 10/01/24 10/01/24 10/01/24 15:33 18:13 20:34 Glucose POC Glucose 160 H 201 H 303 H* 10/01/24 10/01/24 10/01/24 20:36 21:28 21:30 Glucose POC Glucose 288 H 326 H* 280 H 10/02/24 10/02/24 10/02/24 02:40 06:08 07:29 Glucose 152 H POC Glucose 165 H 166 H 10/02/24 11:19 Glucose POC Glucose 205 H OUTPATIENT ANTIDIABETIC REGIMEN: * Amaryl 8mg po Q AM * metformin ER 2500mg po daily * Actos 45mg po daily * Januvia 100mg po daily HbA1c: 9.1% on08/07/24 ASSESSMENT: * Chris is a 78 year old male admitted 10/01 for L4-L5 decompression and fusion. Pharmacy has been consulted for glycemic management postop. * Yesterday BSG preop was 197mg/dL and postop was 201mg/dL. He did receive dexamethasone 8mg iv x 1 preop op as well as dexamethasone 6mg iv daily x 3 days starting today. Lantus 20 units SQ x 1 was ordered last evening and he was started on a weight based bolus insulin regimen with a stress between 2 and 3. * Fasting BSG was 166mg/dL this morning and misa to 205mg/dL at lunch. Lantus 15 units SQ x daily was ordered CR was tightened. PLAN FOR INPATIENT GLYCEMIC CONTROL: * Hold outpatient oral diabetes medications * Basal insulin * Lantus 20 units SQ x 1 last evening, then Lantus 15 units SQ daily starting today * Bolus insulin * NovoLog per scale ACHS or Q6hrs while NPO * Goal Range: Low 110 mg/dL - High 140 mg/dL * Correction Factor: 20 mg/dL/unit * Nutritional / Prandial insulin per carb ratio of 1 unit per 7 grams CHO consumed
[2024-10-02 14:39] LABS: Magnesium 1.6 mg/dl (1.7-2.4)
[2024-10-02 15:14] LABS: Appearance Urine Clear (Clear); Bacteria Urine Automated None Seen (None Seen); Bilirubin Urine Negative (Negative); Blood Urine Negative (Negative); Color Urine Dark Yellow; Epithelial Cell Urine Auto 0-2 /hpf (0-2); Glucose Urine UA 2+ (Negative); Ketones Urine 1+ (Negative); Leukocyte Esterase Urine Negative (Negative); Nitrite Urine Negative (Negative); Protein Urine Trace (Negative); RBC Urine Automated 0-2 /hpf (0-2); Specific Gravity Urine 1.031 (1.000-1.030); Urobilinogen Urine Negative (Negative); WBC Urine Automated 0-5 /hpf (0-5)
[2024-10-02] MEDS: MAGNESIUM SULFATE / D5W 1 GM/100 ML BAG IV ONE (15:46)
[2024-10-03 07:06] LABS: Basophils # (auto) 0.01 K/uL (0.00-0.20); Basophils % (auto) 0.1 %; Eosinophils # (auto) 0.02 K/uL (0.00-0.50); Eosinophils % (auto) 0.2 %; Hematocrit (blood only) 35.6 % (42.0-52.0); Hemoglobin 11.9 g/dl (14.0-18.0); Immature Granulocytes # (auto) 0.05 K/uL (0.01-0.20); Immature Granulocytes % (auto) 0.5 %; Lymphocytes # (auto) 1.77 K/uL (1.20-3.40); Lymphocytes % (auto) 16.5 %; Mean Corpuscular Hemoglobin 31.4 pg (25.0-34.0); Mean Corpuscular Hgb Conc 33.4 g/dL (32.0-36.0); Mean Corpuscular Volume 93.9 fL (80.0-100.0); Mean Platelet Volume 11.3 fL (9.4-12.4); Monocytes # (auto) 0.91 K/uL (0.11-0.59); Monocytes % (auto) 8.5 %; Neutrophils # (auto) 7.96 K/uL (1.40-6.50); Neutrophils % (auto) 74.2 %; Platelet Count 148 K/uL (130-400); RDW Standard Deviation 48.2 fL (36.4-46.3); Red Blood Count 3.79 M/uL (4.70-6.10); White Blood Count 10.72 K/ul (4.8-10.8)
[2024-10-03 07:49] LABS: BUN Creatinine Ratio 21.1 (10-20); Calcium 9.2 mg/dl (8.6-10.3); Creatinine Clr Calc Pharmacy 61.9 ml/min; Magnesium 1.9 mg/dl (1.7-2.4); Potassium 4.3 mmol/L (3.5-5.1)
--- NOTE | 2024-10-03 08:26 | Orthopedic Progress Note ---
Date of Service October 03, 2024 Assessment & Plan (1) Spondylolisthesis, lumbar region: Plan: At this time we will continue physical therapy monitor his BELEN operatively discharge home tomorrow. Admission and Anticipated Discharge Date Admission Date: October 01, 2024 Subjective Patient's back pain is controlled leg symptoms improved Physical Exam Physical Exam: Patient is in the chair at the bedside. Is comfortable. Distracted testing. Results & Data Vital Signs (Past 12 Hours) Vital Signs Temp Pulse Resp BP Pulse Ox O2 Del Method 10/03/24 07:10 36.6 C 71 16 123/76 97 Room Air
[2024-10-03] MEDS: LANTUS PER UNIT CHARGE SC SCH (08:48)
--- NOTE | 2024-10-03 10:22 | Hospitalist Progress Note ---
Date of Service October 03, 2024 Assessment & Plan (1) Atrial flutter: (2) Diabetes mellitus, type 2: (3) Hypertension: Plan #S/p lumbar decompression With Dr. Aguila on 10/01 Pain control, antibiotics, fluids, and DVT PPx per the primary team #Atrial fibrillation/flutter with RVR Tachycardia has now resolved; rate controlled on 10/02 and 10/03 Patient reports he did not take his regular dose of metoprolol prior to his operation on 10/01 Suspect etiology of RVR could have been beta-joel withdrawal/rebound He notes normally his rates are under very good control Patient received metoprolol tartrate 25 mg p.o. x 1 Magnesium WNL Restart metoprolol succinate 25 mg daily If he is showing any symptoms (currently asymptomatic) or if his heart rates are very stubborn to control, could move to telemetry to utilize IV medicationsunlikely to be necessary Will defer anticoagulation re-initiation to primary; Hgb 11.9 on 10/03 #Leukocytosis (resolved) WBC count 12.38 -> 10.72 Clinically, patient denies infectious symptoms such as fever, but reports ongoing sweating at night; this is not new for him CXR negative for pneumonia UA negative for infection Do not feel that infection is the etiology of his tachycardia #Hypertensionblood pressure gives plenty of margin of error for additional rate controlling meds. Continue home meds otherwise. Follow. #Type 2 diabetespharmacy glycemic consult has been placed by primary service #DVT prophylaxisSCDs ordered by primary service. Given improvement in leukocytosis and rate control < 100bpm for 48 hours, hospital medicine will sign off at this time. Thank you for allowing us to participate in the care of this patient. Please reach out if there are any questions or concerns. Admission and Anticipated Discharge Date Admission Date: October 01, 2024 Subjective Mr. Benton is resting peacefully in his chair this morning. He has no new complaints at this time. He did have difficulty sleeping last night, and reports he was "tossing and turning", but did have a good nap this morning and is in good spirits. He has ongoing "sweats" at night, but does not believe he had a fever. Patient has been eating and drinking well. He had a bowel movement this morning. No chest pain. No recurrence of chest palpitations. He has been getting up to the bathroom with a walker without difficulty; no ambulatory devices at home. His lower back pain is well-managed at this time; he rates it 3/10 at present. ROS: Patient endorses mild lower back pain, and sweating at night. Patient denies fever, chills, dizziness/lightheadedness, headache, chest pain, recurrence of chest palpitations, SOB, cough, abdominal pain, N/V/D, or numbness or tingling the arms or legs. Review of Systems Review of Systems: See HPI above Physical Exam Physical Exam: General: no acute distress; pleasant affect; non-toxic appearing; well- nourished; cooperative; SpO2 97% on RA HEENT: normocephalic, atraumatic; no scleral icterus; PERRLA; vision and hearing intact Neck: supple; no lymphadenopathy; trachea midline Skin: warm, dry without signs of tenting; no cyanosis; no rashes, bruising, lesions, or erythema noted CV: chest wall NTP; irregularly irregular rhythm around 71 bpm; S1/S2 normal; no murmurs/rubs/gallops; pulses intact and symmetric at radial, DP, and PT Lungs: no acute respiratory distress; symmetrical chest wall expansion; clear breath sounds across all lung solorio w/o adventitious sounds; no wheezing ABD: Soft, NTP; BS present; no rebound/guarding; no distention Back: Upper spine NTP; lower spine with surgical dressing without signs of drainage, erythema, or infection; lower spine NTP MSK: no tics or fasciculations; no edema noted in the LEs b/l, nonerythematous; patient demonstrates ability to wiggle toes bilaterally Neuro: A&Ox3; normal mood and affect; fluent speech; no focal deficits; sensation grossly intact and symmetric in the lower extremities bilaterally assessed via light touch Results & Data Results & Data Vital Signs (Past 12 Hours) Vital Signs Temp Pulse Resp BP Pulse Ox O2 Del Method 10/03/24 07:10 36.6 C 71 16 123/76 97 Room Air PG Care Time/CCT Total # of Minutes Spent Total Time Spent with Patient: Total time spent is greater than 50% in coordination of care (as documented) at patient's floor/unit and/or counseling patient: [place] [address] SUB INP/OBS CARE 2/35MIN Patient Type Established History Comprehensive Exam Comprehensive Medical Decision Making Moderate Complexity Diagnoses Atrial flutter I48.92 Diabetes mellitus, type 2 E11.9 Hypertension I10
--- NOTE | 2024-10-03 13:39 | Pharmacy Report ---
Pharmacy Glycemic Short Note 2 - Date of Service October 03, 2024 - Glycemic Short BSG Results (Last 24 hours): 10/02/24 10/02/24 10/03/24 16:36 20:25 06:27 Glucose 169 H POC Glucose 262 H 203 H 10/03/24 10/03/24 07:23 11:26 Glucose POC Glucose 161 H 246 H OUTPATIENT ANTIDIABETIC REGIMEN: * Amaryl 8mg po Q AM * metformin ER 2500mg po daily * Actos 45mg po daily * Januvia 100mg po daily HbA1c: 9.1% on08/07/24 ASSESSMENT: 10/03 * Fasting this AM 161 mg/dL with 15 units of lantus. Will continue today * Dex 6 mg IV continued today, prandial BSGs in the 200s yesterday- will tighten novolog to weight stress of 3 * Lunch BSG elevated today, however, morning novolog. Continue to monitor 10/02 * Chris is a 78 year old male admitted 10/01 for L4-L5 decompression and fusion. Pharmacy has been consulted for glycemic management postop. * Yesterday BSG preop was 197mg/dL and postop was 201mg/dL. He did receive dexamethasone 8mg iv x 1 preop op as well as dexamethasone 6mg iv daily x 3 days starting today. Lantus 20 units SQ x 1 was ordered last evening and he was started on a weight based bolus insulin regimen with a stress between 2 and 3. * Fasting BSG was 166mg/dL this morning and misa to 205mg/dL at lunch. Lantus 15 units SQ x daily was ordered CR was tightened. PLAN FOR INPATIENT GLYCEMIC CONTROL: * Hold outpatient oral diabetes medications * Basal insulin * Lantus 15 units sq qam * Bolus insulin * NovoLog per scale ACHS or Q6hrs while NPO * Goal Range: Low 110 mg/dL - High 140 mg/dL * Correction Factor: 15 mg/dL/unit * Nutritional / Prandial insulin per carb ratio of 1 unit per 6 grams CHO consumed
[2024-10-04 07:21] VITALS: BP 137/80; PULSE 67; RESP 16; TEMP 97.9; O2SAT 97
--- NOTE | 2024-10-04 08:17 | Discharge Summary ---
Date of Service October 04, 2024 Admission HPI Per Admitting Provider This is a 78-year-old male who presents with chronic persistent back and leg pain after failed course of nonoperative care is here for surgical invention. Principal Diagnosis Lumbar spondylosis with radiculopathy Discharge Data Allergies Allergy/AdvReac Type Severity Reaction Status Date / Time No Known Allergies Allergy Verified 10/01/24 11:40 Consultations 10/01/24 17:56 Consult Hospitalist Routine Procedures Performed Operation Date: 10/01/24 13:05 Actual Procedures p L4-L5 Decompression and Fusion, Spinal Cord Monitoring(Not Applicable) - Adal Aguila DO Ordered Studies 10/01/24 13:05 FL lumbar spine 2-3V Routine Hospital Course (1) Spondylolisthesis, lumbar region: Patient underwent lumbar decompression fusion tolerates well taken to orthopedic for postoperative. Postop he progressed appropriately. Marked improvement of his back and leg symptoms. BELEN drain decreasing appropriately. Subsidy discharged home. Discharge orders instructions found in chart for further review. Total Time Total Time Spent Total Time Spent (In Minutes): 20 minutes Discharge Plan Discharge Items Patient Disposition: Home - Self-Care Reason For Visit: Lumbosacral Spondylosis with Radiculopathy Discharge Diagnosis: Lumbar spondylosis with radiculopathy Activity: As commented below Non-emergency contact: Primary Care Provider Call non-emergency contact if: you have any medication questions Follow-up/Referrals: Dru Johnson DO [Primary Care Provider] - Diet: Regular Addtl Attending Provider Instructions: ACTIVITY RECOMMENDATIONS: SELF CARE INSTRUCTIONS AFTER THORACIC/LUMBAR FUSIONS 1. You may walk to your tolerance. It is good exercise for your legs and back. Expect some back and intermittent leg aches and pains. 2. You may perform "counter-top" level activities (make a sandwich, mark with a project, etc.). 3. No bending or lifting of more than 10 pounds or back twisting of any nature (roll like a log when turning in bed). 4. You may ride in a car for 20-30 minutes at a time. No driving until after your first visit with your doctor. 5. Frequent changes of position and restricting sitting to 30 minutes at a time will help limit the amount of back spasms and stiffness you may experience. 6. You may discontinue the use of ambulatory aids (cane, crutches, etc.) once your strength and confidence allow. 7. You may wad blanking press adjuster the shower and let water strike your incision when you arrive home at least once daily. Do not take a tub bath, sit in a hot tub or go into a swimming pool until after your first recheck in the office. 8. You may resume previous diet. SPECIAL CARE INSTRUCTIONS: VERY IMPORTANT TO READ AND REVIEW A. Your surgical incision has been closed with a cosmetic suture under the skin that will dissolve in about 6 weeks. In 14 days, you can use a pair of clean scissors and cut the suture that is left outside of the skin at the ends of your incision. 1. The small skin tapes can be removed 7 days after surgery if they have not fallen off by that point. 2. You may keep the wound open to air as much as possible to promote healing after post-op day number 5 unless told otherwise by your doctor. 3. If you think the wound looks like it is becoming infected (redness or worsening drainage) and/or you are experiencing fever, chill or worsening back pain and muscle spasms, contact the office so that we may evaluate you as soon as possible. B. Complications are uncommon, but please contact us if you have any signs or symptoms of: 1. wound infection (fever higher than 102.5 degrees F, redness, separation of wound, drainage, or increasing pain from the incision) 2. blood clots in legs (pain, swelling, redness and warmth in legs) 3. urinary tract infection (fever higher than 102.5 degrees F, burning upon urination or increased frequency of urination) 4. nerve problems (inability to walk on your toes or heels, numbness, loss of bowel or bladder control) 5. any other symptoms that concern you C. Please call the office at if you have any concerns or questions about your operation or recovery. D. No smoking! Smoking drastically decreases the chance of a solid fusion. E. Do not take any anti-inflammatory medications (Indocin, Advil, Motrin, Aspirin, Naprosyn, etc.) as these may inhibit the chance of a solid fusion. Tylenol is okay to take for pain. MANAGING PAIN AFTER SPINAL SURGERY 1. Narcotic medication is intended for short-term use and will be provided for surgical pain. Surgical pain usually lasts for a period of 4-6 weeks. Narcotic medication includes Percocet, Vicodin, Darvocet, Tylenol #3 or Lortab. 2. Longer-term pain is more appropriately treated with non-narcotic medication such as Tylenol ES. 3. Muscle spasm is not appropriately treated with narcotics. Muscle relaxers such as Soma, Flexeril or Skelaxin can be used along with Tylenol ES. 4. Remember that we all live with some "aches and pains". This is not unusual or uncommon after an injury or as we get older. a. Back pain is expected and may include muscle spasms for 4 to 6 weeks after surgery. The pain should gradually improve. If the pain worsens for no apparent reason, please contact the office. b. Intermittent leg pain may also be experienced and should not be concerned about unless it worsens for no apparent reason. If so, please contact the office. 5. We will provide appropriate medication within the normal guidelines of their prescribed use. We will also be very cautious and aware of potential abuse and extended duration of patients' medication needs. a. Pain medications are for your comfort and to assist with sleep and rest so that the tissue can heal. They are not provided in order to return to normal activity and should not be used through the day. To do so or worsening pain at night can result from ongoing tissue damage and development of tolerance to the prescribed medicine. 6. Please allow 2-3 days to process refills. Prescriptions will not be mailed but must be picked up at the office. FOLLOW UP VISIT: Keep your scheduled follow-up appointment. Any questions, please call the office at . Pending Studies at Discharge: No Stand-Alone Forms: My [facility] [employer], Smoking Cessation Medications and DC Order Prescriptions: New tramadol 50 mg tablet 50 mg PO Q6H PRN (Reason: pain, moderate) Qty: 30 0RF oxycodone 5 mg tablet 5 mg PO Q6H PRN (Reason: pain) Qty: 30 0RF Continued metoprolol succinate 25 mg tablet extended release 24 hr 25 mg PO DAILY Qty: 30 5RF metformin 500 mg Tablet 2,500 mg PO QAM Rx Instructions: Last filled 03/2024 x90 day supply. Unable to verify if pt still taking as directed. enalapril maleate [Vasotec] 20 mg Tablet 20 mg PO QAM pioglitazone 45 mg Tablet 45 mg PO QAM aspirin [Aspir-81] 81 mg Tablet,Delayed Release (Dr/Ec) 81 mg PO QAM Rx Instructions: Unable to verify OTC meds at this date/time. simvastatin 20 mg Tablet 20 mg PO QAM glimepiride 4 mg Tablet 8 mg PO QAM Rx Instructions: administer with breakfast ezetimibe [Zetia] 10 mg Tablet 10 mg PO QAM Januvia 100 mg Tablet 100 mg PO QAM cholecalciferol (vitamin D3) [Vitamin D3] 125 mcg (5,000 unit) Tablet 125 mcg PO BID Held Eliquis 5 mg tablet 5 mg PO BID Qty: 60 11RF Discharge Orders: Discharge Order (Routine); Ordered 10/04/24 Ordered By: Adal Aguila Admission Data Admit Date/Time: 10/01/24 15:20 Attending Provider: Adal Aguila Admit Provider: Adal Aguila Primary Care Provider: Dru Johnson Other Providers: Patricio Sheffield
[2024-10-04] MEDS: LANTUS PER UNIT CHARGE SC SCH (08:33)
== END 2024-10-04 11:25 | disposition home or self-care (01) | DRG 402 ==
LOC: ASU 11:33 → PACUINP 15:20 → 3W 17:47